=== PATIENT | female | born 1995 | race Caucasian/White ===

== ENCOUNTER 2022-07-25 13:18 | Outpatient (CLI) | payer BC | END 2022-07-25 13:19 | disposition home or self-care (01) | LOC: CSHULT 13:18 | PROVIDERS: ATTEND Family Medicine | DX: N64.4 Mastodynia (principal); Z80.3 Family history of malignant neoplasm of breast ==

== ENCOUNTER 2023-12-11 11:46 | Day surgery (SDC) | payer BC ==
[2023-12-11 12:38] VITALS: BMI 38.7
[2023-12-11] MEDS ORDERED: hydrALAZINE 20 MG/ML VIAL SLOW IVP PRN (13:12)
[2023-12-11 13:46] LABS: #Eosinphils 0.1 10x3/uL (0.0-0.5); #Monocytes 0.7 10x3/uL (0.0-1.1); #Neutrophils 9.2 10x3/uL (1.5-8.4); %Basophils 0.2 % (0.0-2.0); %Eosinophils 0.7 % (0.0-6.0); %Lymphocytes 17.8 % (18.0-47.0); %Monocytes 5.9 % (0.0-10.0); %Neutrophils 74.8 % (40.0-75.0); Hematocrit 33.7 % (34.9-44.5); Hemoglobin 11.5 g/dL (12.0-15.5); Mean Corpuscular HGB CONC 34.1 g/dL (32.0-36.0); Mean Corpuscular Hemoglobin 28.6 pg (27.0-33.0); Mean Corpuscular Volume 83.8 fl (81.6-98.3); Mean Platelet Volume 10.8 fl (7.4-10.4); Platelet Count 272 10x3/uL (150-450); RBC Distribution Width 14.2 % (11.5-14.5); Red Blood Cell (RBC) Count 4.02 10x6/uL (3.90-5.03); White Blood Cell (WBC) Count 12.3 10x3/uL (3.5-10.5)
[2023-12-11 14:05] LABS: Creatinine, Urine 61.75 mg/dL (47-110); Protein, Urine Random Quant Less than 10 mg/dL (1-14)
[2023-12-11 14:09] LABS: ALT (SGPT) Less than 7 U/L (8-55); AST (SGOT) 15 U/L (5-34); Albumin 3.3 g/dL (3.5-5.0); Alkaline Phosphatase 114 U/L (40-110); Anion Gap 12 mmol/L (10-20); BUN (Urea Nitrogen) 7 mg/dL (7.0-18.7); Bilirubin, Total 0.3 mg/dL (0.2-1.2); Calc. Creatinine Clearance 225 mL/min (70-130); Calcium 8.9 mg/dL (7.8-10.44); Carbon Dioxide 20 mmol/L (22-29); Chloride 108 mmol/L (98-107); Estimated GFR 123; Globulin 2.9 g/dL (2.4-3.5); Glucose 77 mg/dL (70-105); Potassium 3.8 mmol/L (3.5-5.1); Protein, Total 6.2 g/dL (6.0-8.3); Sodium 136 mmol/L (136-145)
== END 2023-12-11 14:40 | disposition home or self-care (01) ==
LOC: CSHLD/OP 11:46
PROVIDERS: ATTEND Obstetrics & Gynecology
DX: O99.891 Other specified diseases and conditions complicating pregnancy (principal); R03.0 Elevated blood-pressure reading, without diagnosis of hypertension; Z79.899 Other long term (current) drug therapy; Z88.8 Allergy status to other drugs, medicaments and biological substances; Z3A.34 34 weeks gestation of pregnancy
CPT/HCPCS: 80053; 82570; 84156; 85025; 99284

== ENCOUNTER 2023-12-19 15:40 | Day surgery (SDC) | payer BC ==
[2023-12-19 16:32] VITALS: BMI 38.7
[2023-12-19 17:54] LABS: Protein, Urine Random Quant Less than 10 mg/dL (1-14)
[2023-12-19 18:06] LABS: #Eosinphils 0.1 10x3/uL (0.0-0.5); #Monocytes 0.6 10x3/uL (0.0-1.1); #Neutrophils 8.6 10x3/uL (1.5-8.4); %Basophils 0.2 % (0.0-2.0); %Eosinophils 0.6 % (0.0-6.0); %Lymphocytes 18.5 % (18.0-47.0); %Monocytes 5.3 % (0.0-10.0); Hematocrit 36.1 % (34.9-44.5); Hemoglobin 11.9 g/dL (12.0-15.5); Mean Corpuscular Hemoglobin 27.8 pg (27.0-33.0); Mean Corpuscular Volume 84.3 fl (81.6-98.3); Mean Platelet Volume 10.2 fl (7.4-10.4); Platelet Count 274 10x3/uL (150-450); RBC Distribution Width 14.5 % (11.5-14.5); Red Blood Cell (RBC) Count 4.28 10x6/uL (3.90-5.03); White Blood Cell (WBC) Count 11.5 10x3/uL (3.5-10.5)
[2023-12-19 18:18] LABS: ALT (SGPT) 10 U/L (8-55); AST (SGOT) 17 U/L (5-34); Albumin 3.3 g/dL (3.5-5.0); Alkaline Phosphatase 124 U/L (40-110); Anion Gap 13 mmol/L (10-20); BUN (Urea Nitrogen) 7 mg/dL (7.0-18.7); Bilirubin, Total 0.5 mg/dL (0.2-1.2); Calc. Creatinine Clearance 206 mL/min (70-130); Calcium 9.1 mg/dL (7.8-10.44); Carbon Dioxide 21 mmol/L (22-29); Chloride 107 mmol/L (98-107); Estimated GFR 121; Globulin 3.1 g/dL (2.4-3.5); Glucose 75 mg/dL (70-105); Protein, Total 6.4 g/dL (6.0-8.3); Sodium 137 mmol/L (136-145)
== END 2023-12-19 18:45 | disposition home or self-care (01) ==
LOC: CSHLD/OP 15:40
PROVIDERS: ATTEND Obstetrics & Gynecology
DX: O11.3 Pre-existing hypertension with pre-eclampsia, third trimester (principal); Z79.82 Long term (current) use of aspirin; Z3A.35 35 weeks gestation of pregnancy
CPT/HCPCS: 36415; 80053; 82570; 84156; 85025

== ENCOUNTER 2025-06-30 14:30 | Outpatient (CLI) | payer BC | END 2025-06-30 14:31 | disposition home or self-care (01) | LOC: CSHRAD 14:30 | PROVIDERS: ATTEND Student in an Organized Health Care Education/Training Program | DX: M54.12 Radiculopathy, cervical region (principal) | CPT/HCPCS: 72052 ==